=== PATIENT | male | born 1990 | race American Indian/Alaskan Native ===

== ENCOUNTER 2018-03-04 10:25 | Emergency (ER) | payer SELFPAY ==
[2018-03-04] MEDS ORDERED: DUONEB *Not for PRN Use IH ONE (10:35)
[2018-03-04] MEDS ORDERED: PROVENTIL IH ONE ×2 (10:35→12:17)
[2018-03-04] MEDS ORDERED: ADRENALINE P/F SUB-Q ONE (10:35)
[2018-03-04] MEDS ORDERED: NACL 0.9% 1000 ML 1,000 ML IV ONE (10:35)
--- NOTE | 2018-03-04 10:40 | Emergency Department Report ---
ED Asthma HPI - General Stated Complaint: DIFFICULTY BREATHING Time Seen by Provider: 03/04/18 10:34 Source: patient, EMS Mode of arrival: Stretcher - History of Present Illness Initial Comments: Mr. Lindsay is 27 yo male with hx of asthma and tobacco abuse. Hx of previous hospitalizatons. Intubated age 16. Ran out of albuterol medicatons due to lack of insurance. Normally takes prednisone, albuterol and advair. He does not have a PCP. MD Complaint: "asthma attack", shortness of breath, wheezing -: Gradual, days(s) (several days) Asthma History: childhood onset, history of frequent attac, previously intubated (last intubated age 16) Severity: severe Context: ran out of meds Associated Symptoms: denies: fever, chest pain Treatments Prior to Arrival: other (EMS provided magnesium, solumedrol, albuterol) - Related Data Previous Rx's Medication Instructions Recorded Last Taken Type ALBUTEROL Inhaler [ProAir HFA 2 puff IH QID PRN #1 device 03/04/18 Unknown Rx Inhaler] Beclomethasone Dipropionate [Qvar] 2 inh IH BID #1 aer.w.adap 03/04/18 Unknown Rx predniSONE [Deltasone] 3 tab PO QDAY 5 Days #15 tab 03/04/18 Unknown Rx Allergies Allergy/AdvReac Type Severity Reaction Status Date / Time peanut AdvReac Swelling Verified 03/04/18 10:51 shellfish derived AdvReac Swelling Verified 03/04/18 10:51 ED Review of Systems ROS: Stated complaint: DIFFICULTY BREATHING Other details as noted in HPI Comment: All other systems reviewed and negative Constitutional: denies: fever, malaise Respiratory: denies: cough Cardiovascular: denies: chest pain ED Past Medical Hx - Past Medical History Hx Asthma: Yes - Surgical History Past Surgical History?: No - Social History Smoking Status: Current Every Day Smoker - Medications Home Medications: Home Medications Medication Instructions Recorded Confirmed Last Taken Type ALBUTEROL Inhaler [ProAir HFA 2 puff IH QID PRN #1 device 03/04/18 Unknown Rx Inhaler] Beclomethasone Dipropionate [Qvar] 2 inh IH BID #1 aer.w.adap 03/04/18 Unknown Rx predniSONE [Deltasone] 3 tab PO QDAY 5 Days #15 tab 03/04/18 Unknown Rx ED Physical Exam - General General appearance: alert, in distress, other (speaking full word sentences with effort) - Head Head exam: Present: atraumatic, normocephalic - Eye Eye exam: Present: normal appearance. Absent: scleral icterus, conjunctival injection - ENT ENT exam: Present: mucous membranes moist - Neck Neck exam: Present: normal inspection. Absent: tenderness, meningismus - Respiratory Respiratory exam: Present: wheezes, accessory muscle use, prolonged expiratory. Absent: rales, rhonchi - Cardiovascular Cardiovascular Exam: Present: regular rate, normal rhythm, normal heart sounds. Absent: bradycardia, tachycardia, systolic murmur, diastolic murmur, rubs, gallop - GI/Abdominal GI/Abdominal exam: Present: soft, normal bowel sounds. Absent: distended, tenderness, guarding, rebound - Rectal Rectal exam: Present: deferred - Extremities Exam Extremities exam: Present: normal inspection - Back Exam Back exam: Present: normal inspection - Neurological Exam Neurological exam: Present: alert, oriented X3 - Psychiatric Psychiatric exam: Present: normal affect, normal mood - Skin Skin exam: Present: warm, dry, intact, normal color. Absent: rash ED Course Vital Signs 03/04/18 03/04/18 03/04/18 10:33 10:43 10:45 Temperature 98.3 F Pulse Rate 81 81 80 Pulse Rate [ Anterior Bilateral] Respiratory 23 22 19 Rate Respiratory Rate [Anterior Bilateral] Blood Pressure 137/87 137/87 Blood Pressure 137/87 [Right] O2 Sat by Pulse 97 96 95 Oximetry 03/04/18 03/04/18 03/04/18 11:01 11:09 11:10 Temperature Pulse Rate 82 Pulse Rate [ 87 96 H Anterior Bilateral] Respiratory 12 Rate Respiratory 18 18 Rate [Anterior Bilateral] Blood Pressure 134/79 Blood Pressure [Right] O2 Sat by Pulse 98 Oximetry 03/04/18 03/04/18 03/04/18 11:15 11:31 11:45 Temperature Pulse Rate 97 H 103 H 110 H Pulse Rate [ Anterior Bilateral] Respiratory 19 20 21 Rate Respiratory Rate [Anterior Bilateral] Blood Pressure 134/79 134/79 134/79 Blood Pressure [Right] O2 Sat by Pulse 95 95 97 Oximetry 03/04/18 03/04/18 03/04/18 12:01 12:15 12:31 Temperature Pulse Rate 107 H 109 H 105 H Pulse Rate [ Anterior Bilateral] Respiratory 33 H 33 H 28 H Rate Respiratory Rate [Anterior Bilateral] Blood Pressure 134/79 134/79 134/79 Blood Pressure [Right] O2 Sat by Pulse 96 94 96 Oximetry - Reevaluation(s) Reevaluation #1: 03/04/18 14:54 I reexamine Mr. Trimble after epinephrine and multiple nebulizer treatments. He is feeling better. He is requiring oxygen but oxygen saturation is 99%. + tachycardia. He has improved air movement with persistent expiratory wheezing with and prolonged expiratory phase. ED Medical Decision Making - Lab Data Result diagrams: 03/04/18 10:47 03/04/18 10:47 - Radiology Data Radiology results: report reviewed - Medical Decision Making Mr. Lindsay presents with severe asthma exacerbation. He is improving. Repeat pulse ox 99% on room air. He has persistent wheezing and tachycardia. HE feels better. He desires to leave against medical advice. In my clinical opinion, he requires hospital admission. I did provide prescriptions of albuterol solution, prednisone and Qvar. Critical Care Time: Yes Critical care time in (mins) excluding proc time.: 45 Critical care attestation.: If time is entered above; I have spent that time in minutes in the direct care of this critically ill patient, excluding procedure time. ED Disposition Clinical Impression: Status asthmaticus, Acute respiratory failure with hypoxia Disposition: DC-01 TO HOME OR SELFCARE Is pt being admited?: No Does the pt Need Aspirin: No Condition: Stable Instructions: Asthma (ED) Prescriptions: ALBUTEROL Inhaler [ProAir HFA Inhaler] 2 puff IH QID PRN #1 device PRN Reason: Shortness Of Breath Beclomethasone Dipropionate [Qvar] 2 inh IH BID #1 aer.w.adap predniSONE [Deltasone] 3 tab PO QDAY 5 Days #15 tab Referrals: [facility] [Outside] - 3-5 Days Forms: AMA Form Time of Disposition: 17:37
[2018-03-04] MEDS ORDERED: ADRENALIN IV ONE (10:50)
[2018-03-04] MEDS ORDERED: ADRENALIN ONE (10:53)
[2018-03-04 11:18] LABS: Basophils # (Auto) 0.1 K/mm3 (0.0-0.1); Basophils % (Auto) 1.3 % (0.0-1.8); Eosinophils # (Auto) 0.3 K/mm3 (0.0-0.4); Eosinophils % (Auto) 2.6 % (0.0-4.3); Hemoglobin 14.7 gm/dl (11.8-15.2); Lymphocytes # (Auto) 0.9 K/mm3 (1.2-5.4); Lymphocytes % (Auto) 8.3 % (13.4-35.0); Mean Corpuscular HGB Conc 33 % (32-34); Mean Corpuscular Hemoglobin 28 pg (28-32); Mean Corpuscular Volume 84 fl (84-94); Monocytes # (Auto) 0.5 K/mm3 (0.0-0.8); Monocytes % (Auto) 4.4 % (0.0-7.3); Platelet Count 242 K/mm3 (140-440); Red Blood Count 5.26 M/mm3 (3.65-5.03); Red Cell Distribution Width 13.4 % (13.2-15.2)
[2018-03-04 11:32] LABS: BUN/Creatinine Ratio 15; Blood Urea Nitrogen 12 mg/dL (9-20); Calcium 9.2 mg/dL (8.4-10.2); Hemolysis Index 11
--- NOTE | 2018-03-04 11:32 | XRay Report ---
AP CHEST: HISTORY: Asthma AP view of the chest demonstrates a normal mediastinal and cardiac contour with clear lungs and normal bony and soft tissue structures. IMPRESSION: Unremarkable AP chest.
[2018-03-04 12:43] VITALS: BP 134/79
== END 2018-03-04 17:52 | disposition home or self-care (01) ==
LOC: ED 10:25
DX: J96.01 Acute respiratory failure with hypoxia (principal); J45.902 Unspecified asthma with status asthmaticus; F17.200 Nicotine dependence, unspecified, uncomplicated; Z91.010 Allergy to peanuts; Z91.013 Allergy to seafood
CPT/HCPCS: 36415; 71045; 80048; 85025; 94640; 96372; 99291; J0171; J7030

== ENCOUNTER 2018-05-18 17:07 | Emergency (ER) | payer OTHER ==
[2018-05-18 17:31] VITALS: BP 139/76
[2018-05-18] MEDS ORDERED: MOTRIN PO ONE (19:36)
[2018-05-18] MEDS ORDERED: DECADRON IM ONE (19:36)
[2018-05-18] MEDS ORDERED: PROVENTIL IH ONE (19:36)
--- NOTE | 2018-05-18 19:53 | Emergency Department Report ---
ED Asthma HPI - General Chief Complaint: Adult Asthma Stated Complaint: SOB Time Seen by Provider: 05/18/18 19:35 Source: EMS Mode of arrival: Ambulatory Limitations: No Limitations - History of Present Illness Initial Comments: pt is a 27 y/o aam hx of asthma who presents for sob wheezing x 3 days cough productive yellow green thick , presents via ems as sob is not improving and he is out of albuterol inhaler. Symptoms rated at 5/10 exacerbated by activity and environmental exposure, relidved by nothing. Complaint: "asthma attack" Onset/Timin -: days(s) Asthma History: childhood onset Severity: moderate Context: medication non-compliance Associated Symptoms: productive cough Treatments Prior to Arrival: inhaled bronchodilator - Related Data Current Asthma Therapy: inhaled bronchodilator Previous Rx's Medication Instructions Recorded Last Taken Type ALBUTEROL Inhaler (OR & NICU) 2 puff IH QID PRN #1 device 03/04/18 Unknown Rx [ProAir HFA Inhaler] Beclomethasone Dipropionate [Qvar] 2 inh IH BID #1 aer.w.adap 03/04/18 Unknown Rx ALBUTEROL NEB's [Proventil 0.083% 2.5 mg IH Q4H PRN #100 ampul 04/09/18 Unknown Rx NEBS] Azithromycin 250 mg PO DAILY #5 tablet 04/09/18 Unknown Rx predniSONE [Deltasone] 3 tab PO QDAY 5 Days #15 tab 04/09/18 Unknown Rx ALBUTEROL Inhaler(NF) [VENTOLIN 1 puff IH QID PRN #1 inha 05/18/18 Unknown Rx Inhaler(NF)] Azithromycin 250 mg PO DAILY #6 tablet 05/18/18 Unknown Rx Codeine Phosphate/Guaifenesin 5 ml PO TID PRN #120 ml 05/18/18 Unknown Rx [Guaifenesin-Codeine Syrup] Dexamethasone [Decadron] 4 mg PO Q12H #4 tablet 05/18/18 Unknown Rx Ibuprofen 800 mg PO TID PRN #30 tablet 05/18/18 Unknown Rx Allergies Allergy/AdvReac Type Severity Reaction Status Date / Time peanut AdvReac Swelling Verified 03/04/18 10:51 shellfish derived AdvReac Swelling Verified 03/04/18 10:51 ED Review of Systems ROS: Stated complaint: SOB Other details as noted in HPI Constitutional: denies: chills, fever Eyes: denies: eye pain, eye discharge, vision change ENT: congestion Respiratory: cough, shortness of breath, SOB with exertion, wheezing Cardiovascular: denies: chest pain, palpitations Endocrine: no symptoms reported Gastrointestinal: denies: abdominal pain, nausea, diarrhea Genitourinary: denies: urgency, dysuria Musculoskeletal: denies: back pain, joint swelling, arthralgia Skin: denies: rash, lesions Neurological: as per HPI Psychiatric: denies: anxiety, depression Hematological/Lymphatic: denies: easy bleeding, easy bruising ED Past Medical Hx - Past Medical History Hx Hypertension: No Hx CVA: No Hx Heart Attack/AMI: No Hx Congestive Heart Failure: No Hx Diabetes: No Hx Deep Vein Thrombosis: No Hx Pulmonary Embolism: No Hx GERD: No Hx Liver Disease: No Hx Renal Disease: No Hx Sickle Cell Disease: No Hx Arthritis: No Hx Headaches / Migraines: No Hx Seizures: No Hx Kidney Stones: No Hx Psychiatric Treatment: No Hx Asthma: Yes (hx intubation) Hx COPD: No Hx Tuberculosis: No Hx Dementia: No Hx HIV: No - Surgical History Hx Coronary Stent: No Hx Open Heart Surgery: No Hx Pacemaker: No Hx Internal Defibrillator: No Hx Cholecystectomy: No Hx Appendectomy: No Hx Breast Surgery: No - Social History Smoking Status: Never Smoker Substance Use Type: Alcohol - Medications Home Medications: Home Medications Medication Instructions Recorded Confirmed Last Taken Type ALBUTEROL Inhaler (OR & NICU) 2 puff IH QID PRN #1 device 03/04/18 Unknown Rx [ProAir HFA Inhaler] Beclomethasone Dipropionate [Qvar] 2 inh IH BID #1 aer.w.adap 03/04/18 Unknown Rx ALBUTEROL NEB's [Proventil 0.083% 2.5 mg IH Q4H PRN #100 ampul 04/09/18 Unknown Rx NEBS] Azithromycin 250 mg PO DAILY #5 tablet 04/09/18 Unknown Rx predniSONE [Deltasone] 3 tab PO QDAY 5 Days #15 tab 04/09/18 Unknown Rx ALBUTEROL Inhaler(NF) [VENTOLIN 1 puff IH QID PRN #1 inha 05/18/18 Unknown Rx Inhaler(NF)] Azithromycin 250 mg PO DAILY #6 tablet 05/18/18 Unknown Rx Codeine Phosphate/Guaifenesin 5 ml PO TID PRN #120 ml 05/18/18 Unknown Rx [Guaifenesin-Codeine Syrup] Dexamethasone [Decadron] 4 mg PO Q12H #4 tablet 05/18/18 Unknown Rx Ibuprofen 800 mg PO TID PRN #30 tablet 05/18/18 Unknown Rx ED Physical Exam - General Limitations: No Limitations General appearance: alert, in no apparent distress - Head Head exam: Present: atraumatic, normocephalic - Eye Eye exam: Present: normal appearance - ENT ENT exam: Present: mucous membranes moist - Neck Neck exam: Present: normal inspection - Respiratory Respiratory exam: Present: normal lung sounds bilaterally, wheezes, chest wall tenderness, prolonged expiratory. Absent: respiratory distress, rhonchi, stridor - Cardiovascular Cardiovascular Exam: Present: regular rate - GI/Abdominal GI/Abdominal exam: Present: soft, normal bowel sounds - Rectal Rectal exam: Present: deferred - Extremities Exam Extremities exam: Present: normal inspection - Back Exam Back exam: Present: normal inspection - Neurological Exam Neurological exam: Present: alert, oriented X3 - Psychiatric Psychiatric exam: Present: normal affect, normal mood - Skin Skin exam: Present: warm, dry, intact, normal color. Absent: rash ED Course Vital Signs 05/18/18 05/18/18 05/18/18 17:26 20:33 20:46 Temperature 98.6 F Pulse Rate 72 Pulse Rate [ 67 Bilateral Throughout] Respiratory 18 17 Rate Respiratory 18 Rate [Bilateral Throughout] Blood Pressure 139/76 O2 Sat by Pulse 95 Oximetry 05/18/18 21:07 Temperature Pulse Rate Pulse Rate [ Bilateral Throughout] Respiratory 17 Rate Respiratory Rate [Bilateral Throughout] Blood Pressure O2 Sat by Pulse Oximetry ED Medical Decision Making - Radiology Data Radiology results: image reviewed no infiltrates no opacities - Medical Decision Making This is bronchitis symptoms improved with nebulizer treatment patient laboratory and ED without increased shortness of breath patient states breathing is at baseline plan refill albuterol prednisone burst are broken when necessary pain Cheratussin when necessary cough patient will follow [facility] For PCP affiliation in 2-3 days patient verbalizes understanding and agreement with same patient was DC'd home in stable condition at this time Critical care attestation.: If time is entered above; I have spent that time in minutes in the direct care of this critically ill patient, excluding procedure time. ED Disposition Clinical Impression: Bronchitis Disposition: DC-01 TO HOME OR SELFCARE Is pt being admited?: No Does the pt Need Aspirin: No Condition: Good Instructions: Chronic Bronchitis (ED) Prescriptions: ALBUTEROL Inhaler(NF) [VENTOLIN Inhaler(NF)] 1 puff IH QID PRN #1 inha PRN Reason: sob wheezing Azithromycin 250 mg PO DAILY #6 tablet Codeine Phosphate/Guaifenesin [Guaifenesin-Codeine Syrup] 5 ml PO TID PRN #120 ml PRN Reason: cough Dexamethasone [Decadron] 4 mg PO Q12H #4 tablet Ibuprofen 800 mg PO TID PRN #30 tablet PRN Reason: pain fever Referrals: PRIMARY CARE,MD [Primary Care Provider] - 3-5 Days [facility] [Outside] - 3-5 Days Forms: Work/School Release Form(ED) Time of Disposition: 21:39
[2018-05-18] MEDS ORDERED: DECADRON IV ONE (20:32)
--- NOTE | 2018-05-18 21:37 | XRay Report ---
FINAL REPORT PROCEDURE: XR CHEST ROUTINE 2V TECHNIQUE: PA and lateral chest radiographs were obtained. CPT 00326 HISTORY: sob wheezing asthma COMPARISON: No prior studies are available for comparison. FINDINGS: Heart: Normal. Mediastinum/Vessels: Normal. Lungs/Pleural space: Normal. Bony thorax: No acute osseous abnormality. Other: IMPRESSION: Normal examination.
== END 2018-05-18 22:41 | disposition home or self-care (01) ==
LOC: ED 17:07
DX: J40 Bronchitis, not specified as acute or chronic (principal); J45.909 Unspecified asthma, uncomplicated; Z91.013 Allergy to seafood; Z91.010 Allergy to peanuts
CPT/HCPCS: 71046; 94640; 96374; 99284; J1100

== ENCOUNTER 2018-06-01 03:24 | Emergency (ER) | payer OTHER ==
[2018-06-01 03:32] VITALS: BP 144/86
[2018-06-01] MEDS ORDERED: DUONEB *Not for PRN Use IH ONE (03:32)
[2018-06-01] MEDS ORDERED: SOLU-Medrol IM ONE (04:46)
--- NOTE | 2018-06-01 05:18 | XRay Report ---
FINAL REPORT EXAM: XR CHEST ROUTINE 2V HISTORY: cough and wheezing TECHNIQUE: Two views of the chest were obtained and compared to the study of 05/18/2018. FINDINGS: The heart size and mediastinum appear normal. The lungs are clear. Pleural fluid is not seen. The skeletal structures appear well maintained. IMPRESSION: Within normal limits.
--- NOTE | 2018-06-01 06:05 | Emergency Department Report ---
ED Shortness of Breath HPI - General Chief Complaint: Adult Asthma Stated Complaint: ASTHMA Time Seen by Provider: 06/01/18 05:58 Source: patient, EMS Mode of arrival: Stretcher Limitations: No Limitations - History of Present Illness Initial Comments: 27-year-old -[place] male comes to the emergency room complaining of shortness of breathing. Patient admits to a little cough and a little wheezing. Patient reports this is been going on for 1 day. Patient reports these ran out of his albuterol inhaler. Patient denies any fever chills no nausea vomiting. Patient reports he fell just because the weather is changing. She has allergy to Peanuts and shellfish, currently takes no medications on a daily basis and has a past medical history of asthma. MD Complaint: shortness of breath -: days(s) (1) Consistency: intermittent Known History Of: asthma Associated Symptoms: cough, other (little cough) Treatments Prior to Arrival: none - Related Data Home Oxygen Therapy: No Previous Rx's Medication Instructions Recorded Last Taken Type ALBUTEROL Inhaler (OR & NICU) 2 puff IH QID PRN #1 device 03/04/18 Unknown Rx [ProAir HFA Inhaler] Beclomethasone Dipropionate [Qvar] 2 inh IH BID #1 aer.w.adap 03/04/18 Unknown Rx ALBUTEROL NEB's [Proventil 0.083% 2.5 mg IH Q4H PRN #100 ampul 04/09/18 Unknown Rx NEBS] Azithromycin 250 mg PO DAILY #5 tablet 04/09/18 Unknown Rx predniSONE [Deltasone] 3 tab PO QDAY 5 Days #15 tab 04/09/18 Unknown Rx ALBUTEROL Inhaler(NF) [VENTOLIN 1 puff IH QID PRN #1 inha 05/18/18 Unknown Rx Inhaler(NF)] Azithromycin 250 mg PO DAILY #6 tablet 05/18/18 Unknown Rx Codeine Phosphate/Guaifenesin 5 ml PO TID PRN #120 ml 05/18/18 Unknown Rx [Guaifenesin-Codeine Syrup] Dexamethasone [Decadron] 4 mg PO Q12H #4 tablet 05/18/18 Unknown Rx Ibuprofen 800 mg PO TID PRN #30 tablet 05/18/18 Unknown Rx Albuterol Sulfate [Ventolin Hfa] 1 puff IH Q4-6H PRN #1 hfa.aer.ad 06/01/18 Unknown Rx Prednisone [predniSONE 5 mg (6-Day 5 mg PO .TAPER #1 tab.ds.pk 06/01/18 Unknown Rx Pack, 21 Tabs)] Allergies Allergy/AdvReac Type Severity Reaction Status Date / Time peanut AdvReac Swelling Verified 03/04/18 10:51 shellfish derived AdvReac Swelling Verified 03/04/18 10:51 ED Review of Systems ROS: Stated complaint: ASTHMA Other details as noted in HPI Comment: All other systems reviewed and negative Constitutional: denies: chills, fever Respiratory: shortness of breath ED Past Medical Hx - Past Medical History Hx Hypertension: No Hx CVA: No Hx Heart Attack/AMI: No Hx Congestive Heart Failure: No Hx Diabetes: No Hx Deep Vein Thrombosis: No Hx Pulmonary Embolism: No Hx GERD: No Hx Liver Disease: No Hx Renal Disease: No Hx Sickle Cell Disease: No Hx Arthritis: No Hx Headaches / Migraines: No Hx Seizures: No Hx Kidney Stones: No Hx Psychiatric Treatment: No Hx Asthma: Yes (hx intubation) Hx COPD: No Hx Tuberculosis: No Hx Dementia: No Hx HIV: No - Surgical History Hx Coronary Stent: No Hx Open Heart Surgery: No Hx Pacemaker: No Hx Internal Defibrillator: No Hx Cholecystectomy: No Hx Appendectomy: No Hx Breast Surgery: No - Social History Smoking Status: Never Smoker Substance Use Type: Marijuana - Medications Home Medications: Home Medications Medication Instructions Recorded Confirmed Last Taken Type ALBUTEROL Inhaler (OR & NICU) 2 puff IH QID PRN #1 device 03/04/18 Unknown Rx [ProAir HFA Inhaler] Beclomethasone Dipropionate [Qvar] 2 inh IH BID #1 aer.w.adap 03/04/18 Unknown Rx ALBUTEROL NEB's [Proventil 0.083% 2.5 mg IH Q4H PRN #100 ampul 04/09/18 Unknown Rx NEBS] Azithromycin 250 mg PO DAILY #5 tablet 04/09/18 Unknown Rx predniSONE [Deltasone] 3 tab PO QDAY 5 Days #15 tab 04/09/18 Unknown Rx ALBUTEROL Inhaler(NF) [VENTOLIN 1 puff IH QID PRN #1 inha 05/18/18 Unknown Rx Inhaler(NF)] Azithromycin 250 mg PO DAILY #6 tablet 05/18/18 Unknown Rx Codeine Phosphate/Guaifenesin 5 ml PO TID PRN #120 ml 05/18/18 Unknown Rx [Guaifenesin-Codeine Syrup] Dexamethasone [Decadron] 4 mg PO Q12H #4 tablet 05/18/18 Unknown Rx Ibuprofen 800 mg PO TID PRN #30 tablet 05/18/18 Unknown Rx Albuterol Sulfate [Ventolin Hfa] 1 puff IH Q4-6H PRN #1 hfa.aer.ad 06/01/18 Unknown Rx Prednisone [predniSONE 5 mg (6-Day 5 mg PO .TAPER #1 tab.ds.pk 06/01/18 Unknown Rx Pack, 21 Tabs)] ED Physical Exam - General Limitations: No Limitations General appearance: alert, in no apparent distress - Head Head exam: Present: atraumatic, normocephalic - Eye Eye exam: Present: EOMI - ENT ENT exam: Present: mucous membranes moist - Respiratory Respiratory exam: Present: prolonged expiratory - Cardiovascular Cardiovascular Exam: Present: regular rate, normal rhythm. Absent: systolic murmur, diastolic murmur, rubs, gallop - GI/Abdominal GI/Abdominal exam: Present: soft, normal bowel sounds - Neurological Exam Neurological exam: Present: alert, oriented X3 - Psychiatric Psychiatric exam: Present: normal affect, normal mood - Skin Skin exam: Present: warm, dry, intact, normal color. Absent: rash ED Course Vital Signs 06/01/18 06/01/18 06/01/18 03:31 03:35 03:46 Temperature 98.5 F Pulse Rate 103 H Pulse Rate [ 105 H 112 H Anterior Bilateral Throughout] Respiratory 18 Rate Respiratory 16 16 Rate [Anterior Bilateral Throughout] Blood Pressure 144/86 O2 Sat by Pulse 94 Oximetry ED Medical Decision Making - Radiology Data Radiology results: report reviewed FINAL REPORT EXAM: XR CHEST ROUTINE 2V HISTORY: cough and wheezing TECHNIQUE: Two views of the chest were obtained and compared to the study of 05/18/2018. FINDINGS: The heart size and mediastinum appear normal. The lungs are clear. Pleural fluid is not seen. The skeletal structures appear well maintained. IMPRESSION: Within normal limits. Transcribed By: RB Dictated By: MYLA WHEELER MD Electronically Authenticated By: MYLA WHEELER MD Signed Date/Time: 06/01/18515 DD/ 5 TD/TT: 06/01/18515 - Medical Decision Making Patient has been evaluated by this provider in fast track. Patient was given a DuoNeb and started her Medrol 125 mg in triage. Patient reports he feels much better We'll discharge patient on a Medrol Dosepak, albuterol nebulizer Patient is to follow-up with his primary care provider if symptoms persist or gets worse. Critical care attestation.: If time is entered above; I have spent that time in minutes in the direct care of this critically ill patient, excluding procedure time. ED Disposition Clinical Impression: Asthma Qualifiers: Asthma severity: unspecified severity Asthma persistence: unspecified Asthma complication type: unspecified Qualified Code(s): J45.909 - Unspecified asthma, uncomplicated Disposition: TO HOME OR SELFCARE Is pt being admited?: No Does the pt Need Aspirin: No Condition: Stable Instructions: Asthma (ED) Additional Instructions: Please complete prednisone pack as prescribed. Use albuterol inhaler as needed for shortness of breath and wheezing. Please follow-up with the primary care provider for continuing care of your chronic asthma. Prescriptions: Albuterol Sulfate [Ventolin Hfa] 1 puff IH Q4-6H PRN #1 hfa.aer.ad PRN Reason: Wheezing Prednisone [predniSONE 5 mg (6-Day Pack, 21 Tabs)] 5 mg PO .TAPER #1 tab.ds.pk Referrals: PRIMARY CARE, [Primary Care Provider] - 3-5 Days [facility] [Provider Group] - 3-5 Days Forms: Work/School Release Form(ED)
== END 2018-06-01 06:17 | disposition home or self-care (01) ==
LOC: ED 03:24
DX: J45.909 Unspecified asthma, uncomplicated (principal); F12.10 Cannabis abuse, uncomplicated; Z91.010 Allergy to peanuts; Z91.013 Allergy to seafood
CPT/HCPCS: 71046; 94640; 96372; 99284; J2930